=== PATIENT | male | born 1980 | race Caucasian/White ===

== ENCOUNTER 2021-10-15 09:01 | Outpatient (CLI) | payer OTHER, SELFPAY ==
[2021-10-15 09:17] LABS: Basophils Absolute Auto 0.06 K/mm3 (0.00-0.10); Basophils Percent Auto 1.1 % (0.0-1.0); Eosinophils Absolute Auto 0.09 K/mm3 (0.02-0.50); Eosinophils Percent Auto 1.6 % (1.0-6.0); Hematocrit 46.7 % (40.0-54.0); Hemoglobin 16.1 g/dL (14.0-18.0); Immature Granulocyte Absolute 0.01 K/mm3 (0.00-0.00); Immature Granulocyte Percent A 0.2 % (0.0-0.0); Lymphocytes Absolute Auto 2.16 K/mm3 (1.10-4.50); Lymphocytes Percent Auto 38.2 % (18.0-42.0); Mean Corpuscular HGB Conc 34.5 g/dL (32.0-36.0); Mean Corpuscular Hemoglobin 29.8 pg (27.0-31.0); Mean Corpuscular Volume 86.5 fL (78.0-102.0); Mean Platelet Volume 9.8 fl (8.7-11.0); Monocytes Absolute Auto 0.38 K/mm3 (0.10-0.90); Monocytes Percent Auto 6.7 % (2.0-11.0); Neutrophils Percent Auto 52.2 % (50.0-70.0); Platelet Count Result 303 K/mm3 (150-420); Red Cell Distribution Width 12.8 % (11.6-14.4); White Blood Count 5.7 K/mm3 (4.8-10.8)
[2021-10-15 10:04] LABS: Alanine Aminotransferase 73 U/L (16-63); Albumin Level 3.7 g/dL (3.4-5.0); Alkaline Phosphatase 66 U/L (46-116); Anion Gap 10 mmol/L (8-16); Aspartate Amino Transferase 38 U/L (15-37); Bilirubin,Total 0.4 mg/dL (0.00-1.00); Blood Urea Nitrogen 11 mg/dL (7-18); Calcium 9.2 mg/dL (8.5-10.1); Carbon Dioxide 28 mmol/L (21-32); Chloride 100 mmol/L (98-108); Cholesterol 224 mg/dL (0-200); Estimated Glomerular Filt Rate > 60; Glucose 95 mg/dL (70-99); HDL Direct 37 mg/dL (40-60); LDL Cholesterol Calculated 140 mg/dL (<130); Osmolality Calculated 285 mOsm/kg (285-295); Potassium 4.3 mmol/L (3.5-5.1); Sodium 138 mmol/L (136-145); Thyroid Stimulating Hormone 1.64 uIU/mL (0.36-3.74); Total Protein 7.9 g/dL (6.4-8.2); Triglycerides 233 mg/dL (0-150); Uric Acid 8.6 mg/dL (3.5-7.2)
[2021-10-15 12:32] LABS: Add Urine Microscopic? NO; Appearance Urine Clear (Clear); Bilirubin Urine Negative (Negative); Blood Urine Negative (Negative); Color Urine Light Yellow (Yellow); Glucose Urine UA Negative (Negative); Ketones Urine Negative (Negative); Leukocyte Esterase Ur Negative (Negative); Nitrate Urine Negative (Negative); Protein Urine Negative (Negative); Urobilinogen Urine 0.2 mg/dL (0.2-1.0); pH Urine 6.5 (5.0-8.0)
[2021-10-17 11:34] LABS: Ferritin 560 ng/mL (26-388)
[2021-10-20 03:30] LABS: Hepatitis A Antibody IgM Nonreactive; Hepatitis B Core Antibody Nonreactive (Nonreactive); Hepatitis B Surface Antigen Nonreactive (Nonreactive); Hepatitis C Signal to Cutoff 0.04 ratio (<1.00); Hepatitis C Virus Antibody Nonreactive (Nonreactive)
== END 2021-10-15 09:02 | disposition home or self-care (01) ==
LOC: CHSLAB 09:05
PROVIDERS: PCP Internal Medicine; Visit Provider Internal Medicine
DX: Z00.00 Encounter for general adult medical examination without abnormal findings (principal); M10.9 Gout, unspecified; R94.5 Abnormal results of liver function studies; D64.9 Anemia, unspecified
CPT/HCPCS: 36415; 80053; 80061; 80074; 81003; 82728; 84443; 84550; 85025

== ENCOUNTER 2021-12-15 14:12 | Outpatient (CLI) | payer OTHER, SELFPAY ==
[2021-12-15 15:26] LABS: Iron 108 ug/dL (49-181)
[2021-12-15 15:38] LABS: Percent Iron Saturation 36 % (20-50)
[2021-12-19 13:21] LABS: Mitochondrial (M2) Ab (IgG) <=20.0 U (<=20.0)
[2021-12-20 12:46] LABS: Ceruloplasmin 29 mg/dL (18-36)
== END 2021-12-15 14:13 | disposition home or self-care (01) ==
LOC: ANHLAB 14:14
PROVIDERS: PCP Internal Medicine; Visit Provider Internal Medicine Gastroenterology
DX: R74.8 Abnormal levels of other serum enzymes (principal); R79.89 Other specified abnormal findings of blood chemistry
CPT/HCPCS: 36415; 81256; 82104; 82390; 83520; 83540; 83550; 86038

== ENCOUNTER 2021-12-30 01:53 | Day surgery (SDC) | payer OTHER, SELFPAY ==
[2021-12-19 10:41] VITALS: BMI 39.6
[2021-12-30 09:34] VITALS: BP 138/97; PULSE 80; RESP 19; TEMP 36.2; O2SAT 98
[2021-12-30] MEDS: LACTATED RINGERS 1,000 ML 150 ML IV CONT (09:49)
--- NOTE | 2021-12-30 09:59 | P.PNAN_ITS ---
Anes - Initial Pre Proc Eval Procedure: Operation Date: 12/30/21 11:00 Proposed Procedures p Esophagogastroduodenoscopy - Etienne Lemon MD Date/Time: 12/30/21 09:59 Surgeon: Etienne Lemon MD Pre Op Diagnosis: GERD Patient Data Age: 41 Gender: M Height: 1.85 m Weight: 138.8 kg Last Vital Signs Temp 36.2 C L 12/30/21 09:34 Pulse 80 12/30/21 09:34 Resp 19 12/30/21 09:34 BP 138/97 H 12/30/21 09:34 Pulse Ox 98 12/30/21 09:34 Allergies Allergy/AdvReac Type Severity Reaction Status Date / Time No Known Allergies Allergy Verified 12/30/21 09:33 Home Medications Medication Instructions Recorded Confirmed Type escitalopram oxalate 10 mg tablet 10 mg PO DAILY 12/15/21 12/19/21 History probenecid-colchicine tablet 1 tablet PO DAILY tablet 12/15/21 12/19/21 History Patient hx anesthesia problems: none Family hx anesthesia problems: none Results Review: All pre-operative results and documents have been reviewed as part of the pre-operative evaluation. [facility] Past Medical History Medical History Elevated ferritin Elevated liver enzymes Family history of Mojica's esophagus GERD (gastroesophageal reflux disease) Obesity, morbid, BMI 40.0-49.9 Family History Family History Mother Mojica esophagus Cancer Social History Social History Smoking packs per day: 1.5 Smoking cigarettes per day: 30.0 Years smoked: 18 Smoking pack-years: 27.00 Smoking status: Former smoker Tobacco type: cigarettes Second hand tobacco smoke exposure: No Alcohol intake: never Substance use: never Substance use type: does not use Living arrangements: with family Additional living arrangements comments: spouse and kids Gender identity (if verbalized by the patient): Male Spiritual care concerns: No Anes - Eval Final PreProcedure Day of Procedure 12/30/21 09:59 Patient weight: morbidly obese Heart: regular rate and rhythm Lungs: decreased breath sounds Airway: Mallampati scale class II Neurological: alert and oriented Last oral intake: >/= 8 hours ASA classification: III Emergent: no Anesthetic plan: proceed Anesthesia type and monitoring: general GIVS and standard monitoring Results Review: All pre-operative results and documents have been reviewed as part of the pre-operative evaluation. Informed Consent: The patient's anesthetic plan and its attendant risks and benefits were discussed with the patient/family/POA. Questions were solicited and answers provided to the satisfaction of the patient/family/POA.
--- NOTE | 2021-12-30 10:12 | WPDHPUPDATE1 ---
History and Physical Update Update Date/Time: 12/30/21 10:12 History and Physical has been reviewed, including an updated exam of the patient. There are NO changes in the patient's condition. Risks, benefits, and alternatives have been discussed and questions answered. Patient agrees to proceed with procedure.
[2021-12-30] MEDS: BENZOCAINE (*SP) 60 ML SPRAY CAN (HURRICAINE) 1 SPRAY MUCOUS MEM (10:17)
--- NOTE | 2021-12-30 10:32 | SUR.OPER ---
Pt desatted during procedure. procedure stopped, pt bagged. an oral airway was placed. pulse checked. anesthesia and inside horticultural specialty grower called to bedside. pt continued to be bagged. pt awakened and vitals returned to normal.
[2021-12-30 10:37] VITALS: BP 118/97; PULSE 105; RESP 13; O2SAT 98
[2021-12-30 10:47] VITALS: BP 139/93; PULSE 97; RESP 13; O2SAT 98
[2021-12-30 10:57] VITALS: BP 103/92; PULSE 92; RESP 21; O2SAT 98
== END 2021-12-30 11:03 | disposition home or self-care (01) ==
PROVIDERS: PCP Internal Medicine; Visit Provider Internal Medicine Gastroenterology
PROC: 0DJ08ZZ Inspection of Upper Intestinal Tract, Via Natural or Artificial Opening Endoscopic (ICD-10-PCS; CPT 43235; principal; 2021-12-30 11:00)
DX: K21.00 Gastro-esophageal reflux disease with esophagitis, without bleeding (principal); K22.10 Ulcer of esophagus without bleeding; K29.70 Gastritis, unspecified, without bleeding; K44.9 Diaphragmatic hernia without obstruction or gangrene; R74.8 Abnormal levels of other serum enzymes; E66.01 Morbid (severe) obesity due to excess calories; Z80.0 Family history of malignant neoplasm of digestive organs
CPT/HCPCS: 43239; 88305; J2704; J7120

== ENCOUNTER 2023-06-16 10:20 | Outpatient (CLI) | payer OTHER, SELFPAY ==
[2023-06-16 10:36] LABS: Basophils Absolute Auto 0.06 K/mm3 (0.00-0.10); Basophils Percent Auto 0.8 % (0.0-1.0); Eosinophils Absolute Auto 0.11 K/mm3 (0.02-0.50); Eosinophils Percent Auto 1.5 % (1.0-6.0); Hematocrit 46.3 % (40.0-54.0); Hemoglobin 15.6 g/dL (14.0-18.0); Immature Granulocyte Absolute 0.01 K/mm3 (0.00-0.00); Immature Granulocyte Percent A 0.1 % (0.0-0.0); Lymphocytes Absolute Auto 2.46 K/mm3 (1.10-4.50); Lymphocytes Percent Auto 32.8 % (18.0-42.0); Mean Corpuscular HGB Conc 33.7 g/dL (32.0-36.0); Mean Corpuscular Hemoglobin 29.4 pg (27.0-31.0); Mean Corpuscular Volume 87.2 fL (78.0-102.0); Mean Platelet Volume 9.3 fl (8.7-11.0); Monocytes Absolute Auto 0.44 K/mm3 (0.10-0.90); Monocytes Percent Auto 5.9 % (2.0-11.0); Neutrophils Absolute Auto 4.4 K/mm3 (1.7-7.2); Neutrophils Percent Auto 58.9 % (50.0-70.0); Platelet Count Result 342 K/mm3 (150-420); Red Blood Count 5.31 M/mm3 (4.70-6.10); White Blood Count 7.5 K/mm3 (4.8-10.8)
[2023-06-16 10:37] LABS: Appearance Urine Clear (Clear); Bilirubin Urine Negative (Negative); Blood Urine Negative (Negative); Color Urine Yellow (Yellow); Glucose Urine UA Negative (Negative); Ketones Urine Negative (Negative); Leukocyte Esterase Ur Negative (Negative); Nitrate Urine Negative (Negative); Protein Urine 1+ (Negative); Urobilinogen Urine 0.2 mg/dL (0.2-1.0); pH Urine 6.5 (5.0-8.0)
[2023-06-16 10:39] LABS: Add Urine Microscopic? YES; Bacteria Urine Trace /hpf; RBC Urine None seen /hpf (0-2); Squamous Epithelial Cell Urine Rare /hpf (Few); WBC Urine None seen /hpf (0-3)
[2023-06-16 11:17] LABS: Alanine Aminotransferase 54 U/L (16-63); Albumin Level 3.6 g/dL (3.4-5.0); Alkaline Phosphatase 83 U/L (46-116); Anion Gap 11 mmol/L (8-16); Aspartate Amino Transferase 32 U/L (15-37); Bilirubin,Total 0.6 mg/dL (0.00-1.00); Blood Urea Nitrogen 9 mg/dL (7-18); CRP 1.3 mg/dL (0.0-0.9); Calcium 9.9 mg/dL (8.5-10.1); Carbon Dioxide 28 mmol/L (21-32); Chloride 102 mmol/L (98-108); Cholesterol 249 mg/dL (0-200); Estimated Glomerular Filt Rate > 60; Ferritin 603 ng/mL (26-388); Glucose 100 mg/dL (70-99); HDL Direct 33 mg/dL (40-60); LDL Cholesterol Calculated 157 mg/dL (<130); Osmolality Calculated 290 mOsm/kg (285-295); Potassium 4.3 mmol/L (3.5-5.1); Sodium 141 mmol/L (136-145); Thyroid Stimulating Hormone 1.64 uIU/mL (0.36-3.74); Total Protein 7.7 g/dL (6.4-8.2); Triglycerides 293 mg/dL (0-150); Uric Acid 9.3 mg/dL (3.5-7.2)
[2023-06-18 11:08] LABS: Hemoglobin A1C 5.5 % (<5.7)
== END 2023-06-16 10:21 | disposition home or self-care (01) ==
LOC: CHSLAB 10:24
PROVIDERS: PCP Internal Medicine; Visit Provider Internal Medicine
DX: R94.5 Abnormal results of liver function studies (principal); M10.9 Gout, unspecified; R79.89 Other specified abnormal findings of blood chemistry; R52 Pain, unspecified
CPT/HCPCS: 36415; 80053; 80061; 81001; 82728; 83036; 84443; 84550; 85025; 86140

== ENCOUNTER 2023-09-13 09:56 | Outpatient (CLI) | payer OTHER, SELFPAY ==
--- NOTE | ~2023-09-13 | US_ITS ---
US renal BI 09/13/2023 10:33 Procedure: Realtime transabdominal ultrasound of the kidneys and bladder. Indication: Right upper quadrant and flank pain Comparison: Ultrasound dated 09/13/2023 Findings: Renal echotexture is normal bilaterally without hydronephrosis, contour deforming mass or r enal calculus. The right kidney measures 11.8 cm and left kidney measures 12.2 cm. Bladder within no rmal limits. Incidental note is made of fatty infiltration of the liver. Impression: 1: Unremarkable renal ultrasound. No stones, masses or hydronephrosis. Reviewed, dictated and finalized at location A. ONAL FACILITIES MANAGER Impression: 1: Unremarkable renal ultrasound. No stones, masses or hydronephrosis.
--- NOTE | ~2023-09-13 | US_ITS ---
US right upper quadrant INDICATION: Right upper quadrant pain. PROCEDURE: Realtime right upper abdominal ultrasound. COMPARISON: No prior studies for comparison. FINDINGS: The pancreas is normal without focal mass or pancreatic ductal dilation. Liver echotexture is increased, consistent with fatty infiltration. There is normal directional flow in the portal ve in. The gallbladder is normal without stones, gallbladder wall thickening or pericholecystic fluid. Comm on bile duct measures 5 mm. No sonographic Lou's sign. IMPRESSION: 1: Fatty infiltration of the liver. Reviewed, dictated and finalized at location A. PATIONAL HEALTH NURSE MANAGER
== END 2023-09-13 09:57 | disposition home or self-care (01) ==
LOC: CHSIMG 09:58
PROVIDERS: PCP Internal Medicine; Visit Provider Internal Medicine
DX: R10.9 Unspecified abdominal pain (principal); K76.0 Fatty (change of) liver, not elsewhere classified
CPT/HCPCS: 76705; 76775

== ENCOUNTER 2023-10-01 10:47 | Outpatient (CLI) | payer OTHER, SELFPAY ==
--- NOTE | ~2023-10-01 | NM_ITS ---
EXAMINATION: NM hepatobiliary w pharm DATE: 10/01/2023 14:34 INDICATION: Right upper quadrant abdominal pain. COMPARISON: Ultrasound dated 09/13/2023 TECHNIQUE: 6.0 mCi Tc-99m mebrofenin (Choletec) was administered intravenously. Scintigraphic images of the abdomen were obtained for one hour. 2.6 mcg sincalide (Kinevac) was administered by slow intr avenous infusion, and imaging was continued for 30 minutes. Gallbladder ejection fraction was calcula winnie by the technologist. FINDINGS: There is normal clearance of radiotracer from the blood pool. There is homogeneous tracer uptake by t he liver. Activity progresses to the gallbladder and bowel. The gallbladder ejection fraction (GBEF) is 8% (normal 10-90%, but most patient with gallbladder dysfunction have GBEF < 35% which does overl ap with the normal range). IMPRESSION: 1. Significantly decreased gallbladder ejection fraction of 8% which can be seen with gallbladder dy sfunction or chronic cholecystitis in the appropriate clinical setting. Reviewed, dictated and finalized at location A. DDER TENDER IMPRESSION: 1. Significantly decreased gallbladder ejection fraction of 8% which can be se en with gallbladder dysfunction or chronic cholecystitis in the appropriate cli nical setting.
--- NOTE | ~2023-10-01 | CT_ITS ---
EXAMINATION: CT abdomen pelvis wo con DATE: 10/01/2023 11:20 INDICATION: Right upper quadrant pain TECHNIQUE: Computed tomography (CT) of the abdomen and pelvis was performed without intravenous contr ast. The dose-length product (DLP) was 1419.95 mGy-cm. Automated exposure control and iterative recon struction technique were employed. COMPARISON: None FINDINGS: The lung bases are clear. The heart size is normal. The liver, spleen, pancreas, gallbladde r, and adrenal glands are normal. There is a 3 mm nonobstructing stone of the right kidney lower pole . There is a 3 mm nonobstructing stone of the left kidney upper pole. No pathologically enlarged abdo milli or pelvic lymph nodes are identified. No free intraperitoneal gas or evidence of bowel obstruct ion. The appendix is normal. There are bilateral inguinal hernias containing fat. IMPRESSION: 1. No CT correlate for the patient's symptoms. 2. Bilateral nonobstructing nephrolithiasis. Reviewed, dictated and finalized at location L. ABLE POWER TOOL REPAIRER
== END 2023-10-01 10:48 | disposition home or self-care (01) ==
PROVIDERS: PCP Internal Medicine; Visit Provider Internal Medicine
DX: R10.11 Right upper quadrant pain (principal); N20.0 Calculus of kidney; R93.89 Abnormal findings on diagnostic imaging of other specified body structures
CPT/HCPCS: 74176; 78227; A9537; J2805

== ENCOUNTER 2023-10-06 11:01 | Outpatient (CLI) | payer OTHER, SELFPAY ==
--- NOTE | ~2023-10-06 | XR_ITS ---
Right ankle Technique: AP, oblique, and lateral views were obtained. Clinical History: Pain Findings: No acute fracture or dislocation is seen. Osseous alignment is anatomic. Ankle mortise and other visualized joint spaces are preserved. Soft tissues are otherwise unremarkable. Impression: Unremarkable right ankle. Reviewed, dictated and finalized at location . R Impression: Unremarkable right ankle.
== END 2023-10-06 11:02 | disposition home or self-care (01) ==
PROVIDERS: PCP Internal Medicine; Visit Provider Internal Medicine
DX: M25.571 Pain in right ankle and joints of right foot (principal)
CPT/HCPCS: 73610

== ENCOUNTER 2023-11-09 14:04 | Outpatient (CLI) | payer OTHER, SELFPAY ==
[2023-11-09 15:00] LABS: Alanine Aminotransferase 49 U/L (6-50); Albumin Level 4.5 g/dL (3.5-5.1); Alkaline Phosphatase 85 U/L (38-126); Amylase 98 U/L (30-110); Aspartate Amino Transferase 39 U/L (17-59); Bilirubin,Total 0.5 mg/dL (0.2-1.3); Lipase 130 U/L (23-300)
== END 2023-11-09 14:05 | disposition home or self-care (01) ==
PROVIDERS: PCP Internal Medicine; Visit Provider Surgery
DX: Z01.818 Encounter for other preprocedural examination (principal); K81.1 Chronic cholecystitis; K21.9 Gastro-esophageal reflux disease without esophagitis
CPT/HCPCS: 36415; 80076; 82150; 83690

== ENCOUNTER 2023-11-14 03:27 | Day surgery (SDC) | payer OTHER, SELFPAY ==
[2023-11-07 09:22] VITALS: BMI 38.6
--- NOTE | 2023-11-07 09:33 | PC.NURSE ---
Report to the Outpatient Waiting Room, entrance under the green pavilion located off [facility], at time _0800___ on date _11/14/23 . Planned Procedure Time: __1000 . Time changes happen often and if your time is changed the preop area will call you the afternoon before. - You and your visitor will be asked to self-screen and do not enter if you have any COVID symptoms. - A mask is optional within the hospital at this time. Patients may have clear liquids (water, carbonated beverages, clear teas, apple juice) until 3 hours prior to surgery with a maximum of 20 ounces. - No food from midnight until time of surgery Take the following medications with a SIP of water the morning of surgery: ___Escitalopram DO NOT STOP ANY OF YOUR OTHER PRESCRIPTION MEDICATIONS PRIOR TO SURGERY ?EXCEPT THE FOLLOWING Please no make-up, nail ivorian, hairspray, perfume, deodorant, or body powder the day of surgery. No jewelry (including any body piercings) or valuables the day of surgery, leave them at home. Please take a shower or bath the night before, or the morning of, surgery with an antibacterial soap. Wear comfortable, loose fitting clothing. Children are encouraged to wear pajamas. - Jewelry must be removed prior to entering the operating room. Rings and piercings that are not removed may be cut off. - The hospital will not accept responsibility for valuables. - Please leave all valuables, including medications, at home the day of surgery. If you are going home after surgery, a licensed grab driver must drive you home. - NO public transportation without another adult if you receive anesthesia. - We recommend that an adult stay with you for 24 hours following discharge. - We also recommend that you do not drive, make important decision, drink alcoholic beverages, or take any drugs that were not prescribed by your health care provider for at least 24 hours after your discharge time. Follow any additional instructions given to you from your surgeon. If you or anyone in your household have experienced Covid symptoms in the past week, please notify your surgeon or the nurse liaison at the phone number below for possible testing. Telephone instructions given to __Iván L__and asked if any additional questions and then verbalized understanding. Patient advised to call surgeon office or pre surgery nurse liaison [phone] if any additional questions.
--- NOTE | 2023-11-13 12:29 | PM.SD2 ---
Same Day Admit/Disch: HPI History of Present Illness Chief complaint: acalculus chronic cholecystitis Narrative: Iván Edwards is a 43 year old male who changed his diet to reduce sugar and soda late in 2022. He was having some reflux symptoms and these improved but then in July he started having right-sided abdominal pain after eating. This would often be followed by vomiting and diarrhea. He has a family history of cholecystectomy in his mother. He had an ultrasound done on September 13, 2023 which was negative for gallstones. He had HIDA scan done on 10/01/2019 for which showed a very low gallbladder ejection fraction of only 8%. He was seen in the office and felt to have chronic cholecystitis without gallstones. He is taken to surgery now for laparoscopic cholecystectomy. [facility] Past Medical History Medical History Elevated ferritin Elevated liver enzymes Family history of Mojica's esophagus GERD (gastroesophageal reflux disease) Kidney stones Obesity, morbid, BMI 40.0-49.9 Surgical History Surgical History History of endoscopy Family History Family History Mother Mojica esophagus Cancer Father Heart disease Diabetes mellitus Hypertension Social History Social History Smoking packs per day: 1.5 Smoking cigarettes per day: 30.0 Years smoked: 18 Smoking pack-years: 27.00 Smoking status: Former smoker Tobacco type: cigarettes Second hand tobacco smoke exposure: No Alcohol intake: never Substance use: never Substance use type: does not use Living arrangements: with family Additional living arrangements comments: spouse and kids Occupation/Education: occupation Gender identity (if verbalized by the patient): Male Spiritual care concerns: No Same Day Admit/Disch: Med Pre-admit Medications Home Medications Medication Instructions Recorded Confirmed Type escitalopram oxalate 10 mg tablet 10 mg PO DAILY 12/15/21 11/07/23 History febuxostat 40 mg tablet 40 mg PO DAILY 11/07/23 11/07/23 History ketorolac 10 mg tablet 10 mg PO Q6H 4 days #16 tabs 11/14/23 Rx oxycodone-acetaminophen 5 mg-325 0.5 - 1 tablet PO Q6H PRN pain #10 11/14/23 Rx mg tablet tabs Review of Systems Review of Systems All systems reviewed & are unremarkable except as noted in HPI and below (HPI and those items noted below) Constitutional Constitutional: Denies chills and Denies fever(s) Cardiovascular Cardiovascular: Denies chest pain, Denies diaphoresis, Denies dyspnea and Denies paroxysmal nocturnal dyspnea Respiratory Respiratory: Denies chest congestion, Denies cough and Denies dyspnea Integumentary/Breasts Skin/Breast: Denies lesions and Denies rash Exam Const: General: comfortable, no acute distress, alert, awake and obese Orientation/consciousness: patient oriented x3 HENMT: Head: normocephalic and atraumatic Mouth: Yes Normal oral and palatal mucosa present Eyes: Conjunctivae: conjunctivae normal Pupils: Equal, round and reactive pupils present EOM: EOMs intact bilaterally Neck: Neck: normal visual inspection, no lymphadenopathy and nontender Resp: Effort & Inspection: normal respiratory effort Auscultation: clear to auscultation bilaterally Cardio: Rate: regular rate Rhythm: regular rhythm Heart sounds: no gallops, no murmurs and no rubs GI: Inspection: normal to inspection, non-distended, obesity and no visible herniation GI Palp: Yes Soft to palpation, No Tenderness to palpation present (GI), No Hepatomegaly present, No Splenomegaly present, No Hernia present and No Palpable mass present Auscultation: normal bowel sounds Skin: Lesions: no lesions Rashes: no rashes Neuro: General: no focal motor deficits and CN's II-XI intact bilaterally Cranial nerves:
[2023-11-14] VITALS (7 sets, daily range): BP systolic 118–143; BP diastolic 76–97; PULSE 79–99; RESP 12–16; TEMP 36.1–36.6; O2SAT 98–99; BMI 38.9
--- NOTE | 2023-11-14 08:35 | WPDHPUPDATE1 ---
History and Physical Update Update Date/Time: 11/14/23 08:35 History and Physical has been reviewed, including an updated exam of the patient. There are NO changes in the patient's condition. Risks, benefits, and alternatives have been discussed and questions answered. Patient agrees to proceed with procedure.
--- NOTE | 2023-11-14 08:54 | WPDANESEPPF ---
Anes - Initial Pre Proc Eval Procedure: Operation Date: 11/14/23 10:30 Proposed Procedures p Laparoscopic Cholecystectomy - David Dickey MD Date/Time: 11/14/23 08:54 Surgeon: David Dickey MD Pre Op Diagnosis: acalculus chronic cholecystitis Patient Data Age: 43 Gender: M Height: 1.83 m Weight: 129.27 kg Last Vital Signs O2 Del Method Room Air 11/07/23 09:21 Allergies Allergy/AdvReac Type Severity Reaction Status Date / Time allopurinol AdvReac Unknown Nausea and Verified 11/14/23 08:06 Vomiting probenecid AdvReac Nausea and Verified 11/14/23 08:06 Vomiting Home Medications Medication Instructions Recorded Confirmed Type escitalopram oxalate 10 mg tablet 10 mg PO DAILY 12/15/21 11/07/23 History febuxostat 40 mg tablet 40 mg PO DAILY 11/07/23 11/07/23 History Patient hx anesthesia problems: none Family hx anesthesia problems: none Results Review: All pre-operative results and documents have been reviewed as part of the pre-operative evaluation. [facility] Past Medical History Medical History Elevated ferritin Elevated liver enzymes Family history of Mojica's esophagus GERD (gastroesophageal reflux disease) Kidney stones Obesity, morbid, BMI 40.0-49.9 Surgical History Surgical History History of endoscopy Family History Family History Mother Mojica esophagus Cancer Father Heart disease Diabetes mellitus Hypertension Social History Social History Smoking packs per day: 1.5 Smoking cigarettes per day: 30.0 Years smoked: 18 Smoking pack-years: 27.00 Smoking status: Former smoker Tobacco type: cigarettes Second hand tobacco smoke exposure: No Alcohol intake: never Substance use: never Substance use type: does not use Living arrangements: with family Additional living arrangements comments: spouse and kids Occupation/Education: occupation Gender identity (if verbalized by the patient): Male Spiritual care concerns: No Anes - Eval Final PreProcedure Day of Procedure 11/14/23 08:54 Patient weight: obese Heart: regular rate and rhythm Lungs: clear to auscultation Airway: Mallampati scale class II Neurological: alert and oriented Last oral intake: >/= 8 hours ASA classification: III Emergent: no Anesthetic plan: proceed Anesthesia type and monitoring: general ETT and standard monitoring Results Review: All pre-operative results and documents have been reviewed as part of the pre-operative evaluation. Informed Consent: The patient's anesthetic plan and its attendant risks and benefits were discussed with the patient/family/POA. Questions were solicited and answers provided to the satisfaction of the patient/family/POA.
[2023-11-14] MEDS: ACETAMINOPHEN 500 MG TABLET 1000 MG PO (09:08)
[2023-11-14] MEDS: KETOROLAC 15 MG/ML VIAL (*BKC) IV PUSH (09:09)
[2023-11-14] MEDS: LACTATED RINGERS 1,000 ML 30 ML IV CONT ×2 (09:09→11:02)
[2023-11-14] MEDS: ceFAZolin 3 GM/D5W 100 ML 100 ML IVPB (10:00)
--- NOTE | 2023-11-14 10:05 | P.OP_ITS ---
Procedure Note - Detailed Date of Procedure 11/14/23 Pre-op Diagnosis acalculus chronic cholecystitis Post-op Diagnosis Same Procedure Performed Laparoscopic cholecystectomy Surgeon David Dickey MD Operations Director [facility] Anesthesia General and Local Indications Patient has postprandial right upper quadrant abdominal pain with nausea and diarrhea. His ultrasound did not show gallstones but he had a very low ejection fraction of only 8% on his HIDA scan. He is taken to surgery now for laparoscopic cholecystectomy. Findings Mild chronic inflammation, no biliary ductal dilatation, fatty liver Description of Procedure Patient was taken to surgery and induced into general anesthesia. The abdomen was prepped and draped. Trocars were placed in the usual fashion using 1st a varies needle in the epigastric area and then applied Medical optical trocars. 5 mm camera was used. After adequate insufflation with CO2, the gallbladder was decompressed with a laparoscopic aspirator. The cholecystotomy was closed with a Vicryl endoloop. The gallbladder was then retracted anterosuperiorly. Dissection was carried out in the cholecystohepatic triangle. The cystic duct and cystic artery were dissected out very clearly. The gallbladder was dissected off the liver at its lower 3rd. Critical view was achieved. The cystic duct and cystic artery were then securely clipped and divided. The gallbladder was dissected free from the liver by dividing its some remaining attachments. The gallbladder was then placed in an Endo-Catch bag and was retrieved through the epigastric trocar. The epigastric trocar was then replaced. We reviewed the gallbladder fossa and right upper quadrant. Some additional cautery was used but all looked good. There was no evidence of ble eding or bile leakage. We then evacuated CO2 and removed the trocar sleeves. Skin wounds were closed with subcuticular 4-0 Monocryl skin suture. The wounds were dressed with Exofin surgical adhesive. Patient was awakened and taken to recovery in good condition. Sponge and needle counts were correct x2. Estimated Blood Loss -5 Drains No Packing No Pathology Yes (Gallbladder) Complications No immediate complications Condition Stable Disposition PACU [facility] Billing Surgery - Charge Forward: Surgery Billing (Laparoscopic cholecystectomy)
[2023-11-14] MEDS: BUPIVACAINE/EPINEPHRINE 0.5% 50 ML VIAL 30 ML INFILTRATE (10:20)
== END 2023-11-14 12:19 | disposition home or self-care (01) ==
PROVIDERS: PCP Internal Medicine; Visit Provider Surgery
PROC: 0FT44ZZ Resection of Gallbladder, Percutaneous Endoscopic Approach (ICD-10-PCS; CPT 47562; principal; 2023-11-14 10:30)
DX: K80.10 Calculus of gallbladder with chronic cholecystitis without obstruction (principal); K21.9 Gastro-esophageal reflux disease without esophagitis; Z87.891 Personal history of nicotine dependence; E66.9 Obesity, unspecified; Z68.39 Body mass index [BMI] 39.0-39.9, adult
CPT/HCPCS: 47562; 36415; 80076; 82150; 83690; 88304; A9270; J0690; J1100; J1885; J2250; J2405; J2704; J3010; J7120

== ENCOUNTER 2024-08-14 09:52 | Outpatient (CLI) | payer OTHER, SELFPAY ==
--- NOTE | ~2024-08-14 | XR_ITS ---
AP and lateral views of the left hip Clinical history: Pain Findings: No acute fracture or dislocation is seen. Osseous alignment is anatomic. Left hip joint is intact. Soft tissues are unremarkable. Impression: No significant abnormality is seen. Reviewed, dictated and finalized at location M. PHERE ARCHITECT Impression: No significant abnormality is seen.
--- NOTE | ~2024-08-14 | XR_ITS ---
Lumbosacral Spine: AP and lateral views Clinical History: Pain Findings: The normal lordotic curve is maintained. The vertebral bodies and posterior elements are i ntact. The intervertebral disc spaces are preserved. The sacroiliac joints are normally outlined. Impression: No significant abnormality. Reviewed, dictated and finalized at [facility]. L PAINTER Impression: No significant abnormality.
== END 2024-08-14 09:53 | disposition home or self-care (01) ==
LOC: CHSIMG 09:53
PROVIDERS: PCP Internal Medicine; Visit Provider Internal Medicine
DX: M25.552 Pain in left hip (principal); M79.662 Pain in left lower leg
CPT/HCPCS: 72100; 73502

== ENCOUNTER 2024-08-22 07:33 | Outpatient (RCR) | payer OTHER, SELFPAY ==
--- NOTE | 2024-08-22 08:08 | OPREHPOC ---
Outpatient Therapy Plan of Care This is a Multidisciplinary Plan of Care that may contain components documented by all disciplines (PT, OT, and ST.) PT Problem 1 PT Problem #1 Knowledge Deficit PT Goal 1 Goal / Goal Update 1. independent and compliant with HEP Target Visit 4 PT Problem 2 PT Problem #2 Pain PT Goal 1 Goal / Goal Update 1. decrease pain at worst to 2/10 or less in the lower back and L LE Target Visit 9 PT Problem 3 PT Problem #3 Impaired Strength PT Goal 1 Goal / Goal Update 1. improve core strength to 4-/5 or better overall 2. 5/5 bilateral hip strength 3. 5/5 L knee strength 4. 5/5 L ankle strength Target Visit 9 PT Problem 4 PT Problem #4 Impaired Flexibility PT Goal 1 Goal / Goal Update 1. improve bilateral hamstrings flexibility to 35 degrees or less tightness per the 90/90 test 2. patient to display mild piriformis mm tightness or less Target Visit 9 PT Problem 5 PT Problem #5 Impaired Functional Mobility PT Goal 1 Goal / Goal Update 1. forward flexion to the floor without increased pain/symptoms 2. patient to tolerate sitting for 2 hours to complete work and enjoy home activities 3. patient to report no symptoms past the L buttock Target Visit 9
--- NOTE | 2024-08-22 08:08 | PTOPEVAL1 ---
Assessment and note entered by JT File, PT Evaluation Information Assessment Status Evaluation ICD-10 Condition Codes (PT) Pain in low back M54.50,Radiculopathy, lumbar region M54.16 Onset 08/14/24 Subjective Information patient reports he is unsure if its his back or his hip that is the problem. he reports about 9-10 weeks ago he was doing yard work. he reports he woke up the next day with sciatic like symptoms in the L hip. he reports he is familiar to this as he has treated this himself in the past. he reports he then saw his PCP who performed an xray, gave him and anti inflmatory, and sent him here to PT. he reports the pain runs along the back side of the L hip. he reports he can feel exactly where the pain and pinching occurs when he crosses the L LE across his body. he reports he has increased pain and symptoms with sitting still/ laying still. he reports he feels better when he is active. he reports the longer he is walking is better for him. Reported Pain Level Pain Score 4: Self Report Assessment PT Clinical Summary mr. barba is a 43 yo man who presents to skilled PT services for evaluation and treatment of L LE symptoms. he presents today with signs and symptoms of lumbar radiculopathy. he displays decreased lumbar rom, hip mm tightness, weakness of the L LE, and poor core strength/stability. he also has symptoms that run down the back of the L LE passed the knee and into the L foot. he would benefit from continued skilled PT services to address his objective/functional deficits and return to prior level functional activity performance/quality of life. Plan of Care Interventions Electrical Stimulation,Gait Training,Hot Pack/Cold Pack,Manual Therapy,Mechanical Traction,Neuro Re- education,Patient/Caregiver Education,Therapeutic Activities,Therapeutic Exercise,Other Other Interventions dry needling PT Services Indicated Yes Treatment Frequency and 3x weekly for 9 visits Duration These treatments will address the objective and functional deficits as defined above. The patient will be advanced safely and appropriately in order for the patient to progress towards his/her prior level of function. Additional exercises will be introduced and as well as a comprehensive home exercise program upon discharge, if needed, ?to ensure carryover of functional gains achieved in the clinic. This treatment plan has been reviewed and agreement upon by the patient.
--- NOTE | 2024-08-25 12:36 | PCPTNOTE ---
Today treatment performed under supervision of the co-signing PT. I have reviewed all medical records.
--- NOTE | 2024-08-26 08:16 | PCPTNOTE ---
08/26/24: Pt cancelled today's appointment. -Mayte Alexander, PT
== END 2024-09-05 20:00 | disposition home or self-care (01) ==
LOC: CHSPT 07:33
PROVIDERS: Visit Provider Internal Medicine
DX: M54.16 Radiculopathy, lumbar region (principal)
CPT/HCPCS: 97014; 97110; 97140; 97161; G0283